=== PATIENT | female | born 1995 | race Caucasian/White ===

== ENCOUNTER 2022-06-04 09:17 | Outpatient (CLI) | payer OTHER, SELFPAY | END 2022-06-04 09:18 | disposition home or self-care (01) | LOC: NFLDREF 06-05 08:50 | PROVIDERS: PCP Nurse Practitioner Family; Referring Provider Nurse Practitioner Family; Visit Provider Nurse Practitioner Family | DX: R30.0 Dysuria (principal) | CPT/HCPCS: 87086 ==